=== PATIENT | female | born 1970 | race African-American/Black ===

== ENCOUNTER 2019-09-22 09:36 | Day surgery (SDC) | payer BC ==
[2019-09-18 12:00] VITALS: BMI 31.3
[2019-09-22 15:24] VITALS: TEMP 97.6
[2019-09-22 15:35] VITALS: BP 120/60; PULSE 55
== END 2019-09-22 13:00 | disposition home or self-care (01) ==
LOC: FASU-ENDO 09:36
PROVIDERS: ATTEND Internal Medicine Gastroenterology
PROC: 0DJD8ZZ Inspection of Lower Intestinal Tract, Via Natural or Artificial Opening Endoscopic (ICD-10-PCS; principal; 2019-09-22 12:15)
DX: Z12.11 Encounter for screening for malignant neoplasm of colon (principal); K57.30 Diverticulosis of large intestine without perforation or abscess without bleeding; Z93.3 Colostomy status
CPT/HCPCS: 84703